=== PATIENT | male | born 1965 | race Caucasian/White ===

== ENCOUNTER 2019-10-29 22:23 | Emergency (ER) | payer OTHER ==
[~2019-10-29] VITALS: Ht 180.3 cm; Wt 74.8 kg
[2019-10-30 00:19] LABS: ABSOLUTE NEUTROPHILS 3.5 thou/uL (1.4-8.2); BASOPHILS 1.1 % (0.0-2.0); HEMATOCRIT 45.5 % (42.0-52.0); LYMPHOCYTES 32.2 % (24.0-44.0); MCHC 33.1 g/dL (28.0-37.0); MCV 96.8 fL (80.0-100.0); MONOCYTES 10.8 % (1.0-8.0); PLATELET COUNT 196 thou/uL (150-400); POLYS 52.9 % (36.0-66.0); RDW 13.6 % (10.5-14.5); WBC 6.7 thou/uL (4.0-11.0)
[2019-10-30 00:22] LABS: ANION GAP 7 mmol/L (7-16); BUN 29 mg/dL (7-18); CALCIUM 8.8 mg/dL (8.5-10.1); CHLORIDE 104 mmol/L (98-107); CO2 27 mmol/L (21-32); GLUCOSE 93 mg/dL (74-106); POTASSIUM 4.2 mmol/L (3.5-5.1); SODIUM 138 mmol/L (136-145)
[2019-10-30 00:31] LABS: TROPONIN-I <0.06 ng/mL (<0.06)
[2019-10-30 00:57] VITALS: BP 103/64
--- NOTE | 2019-10-30 09:12 | EKG ---
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
== END 2019-10-30 01:00 | disposition home or self-care (01) ==
LOC: ER 22:23
PROVIDERS: Emergency Medicine
DX: R06.00 Dyspnea, unspecified (principal); R05 Cough; F17.210 Nicotine dependence, cigarettes, uncomplicated